=== PATIENT | male | born 1950 | race Caucasian/White ===

== ENCOUNTER 2016-05-14 22:16 | Emergency (ER) | payer OTHER ==
[2016-05-15] MEDS ORDERED: ALBUTEROL/IPRATROPIUM 2.5/0.5 MG 3 ML/EACH DOSE ONE (00:14)
[2016-05-15] MEDS ORDERED: DEXAMETHASONE SOD PHOS 10 MG/1 ML VIAL ONE (00:36)
--- NOTE | 2016-05-15 07:47 | RAD ---
Exam: Two-view chest COMPARISON: 01/17/2015, 08/14/2012 INDICATION: Cough and shortness of breath. FINDINGS: PA and lateral views of the chest were obtained. Cardiac silhouette is within normal limits and stable. There is new mild right basilar opacity with associated blunting of the right costophrenic angle when compared with the 2015 exam. Left lung remains clear, other than some minor scarring in the left midlung zone. There is no pleural effusion on the left. Bones of the chest wall within normal limits. Surgical clips are seen within the right upper quadrant. IMPRESSION: New right basilar pleural-parenchymal disease, compatible pneumonia in the correct clinical setting. A follow-up radiograph is recommended to ensure resolution.
== END 2016-05-15 01:50 | disposition home or self-care (01) ==
LOC: ED 22:16
DX: J44.1 Chronic obstructive pulmonary disease with (acute) exacerbation (principal); J45.909 Unspecified asthma, uncomplicated; I25.2 Old myocardial infarction; F17.210 Nicotine dependence, cigarettes, uncomplicated
CPT/HCPCS: 71020; 94640; 99283 ×2; 96372; J1100